=== PATIENT | male | born 1990 | race African-American/Black ===

== ENCOUNTER 2018-11-01 15:10 | Inpatient (IN) | payer OTHER ==
[2018-11-01 18:30] VITALS: BMI 43.7
--- NOTE | 2018-11-01 21:14 | HP ---
"CIWA Score - Admission Criteria [facility] Guidelines: Admission for Medically Managed Detox: Requires at least one of the followin. CIWA greater than 12 2. Seizures within the past 24 hours 3. Delirium tremens within the past 24 hours 4. Hallucinations within the past 24 hours 5. Acute intervention needed for co occurring medical disorder 6. Acute intervention needed for co occurring psychiatric disorder 7. Severe withdrawal that cannot be handled at a lower level of care (continued vomiting, continued diarrhea, abnormal vital signs) requiring intravenous medication and/or fluids 8. Admission ROS [facility] Chief Complaint: SEEKING INPATIENT REHAB FOR CRACK/COCAINE DEPENDENCE Allergies/Adverse Reactions: Allergies Allergy/AdvReac Type Severity Reaction Status Date / Time No Known Allergies Allergy Verified 11/01/18 20:57 History of Present Illness: 28 Y.O. MALE WITH CRACK/COCAINE DEPENDENCE SEEKING [facility]. THIS IS HIS FIRST ADMISSION HERE BUT IS KNOWN TO OTHER SUBSTANCE TXMENT CTR. REFERRED BY A FRIEND. LAST REHAB SERVICE HE REPORTS WAS LATE LAST YEAR. DENIES ANY SIGNIFICANT PERIOD OF CLEAN TIME. DENIES HX/O SI/HI, AVH, SEIZURE D/O. HOMELESS , SSI, DENIES LEGALS. PMHX- HYPOTHYROIDISM, PSYCH- DEPRESSION, BIPOLAR, SCHIZOPHRENIA Search Terms: PEDRO LUIS KELLY, 1990 Search Date: 11/01/2018 09:05:37 PM The Drug Utilization Report below displays all of the controlled substance prescriptions, if any, that your patient has filled in the last twelve months. The information displayed on this report is compiled from pharmacy submissions to the Department, and accurately reflects the information as submitted by the pharmacies. This report was requested by: Hector Guallpa | Reference #: [id number] Exam Limitations: No Limitations - Ebola screening Have you traveled outside of the country in the last 21 days: No Have you had contact with anyone from an Ebola affected area: No Have you been sick,other than usual withdrawal symptoms: No - Review of Systems Constitutional: No Symptoms Reported EENT: reports: No Symptoms Reported Respiratory: reports: No Symptoms reported, Shortness of Breath Cardiac: reports: No Symptoms Reported GI: reports: No Symptoms Reported : reports: No Symptoms Reported Musculoskeletal: reports: No Symptoms Reported Integumentary: reports: Other (BLISTERS AND WART ON MY FEET) Neuro: reports: No Symptoms reported Endocrine: reports: Other (HYPOTHYROIDISM) Hematology: reports: No Symptoms Reported Psychiatric: reports: Orientated x3, Anxious, Depressed Other Systems: Reviewed and Negative Patient History - Patient Medical History Hx Anemia: No Hx Asthma: No Hx Chronic Obstructive Pulmonary Disease (COPD): No Hx Cancer: No Hx Cardiac Disorders: No Hx Congestive Heart Failure: No Hx Hypertension: No Hx Hypercholesterolemia: No Hx Pacemaker: No HX Cerebrovascular Accident: No Hx Seizures: No Hx Dementia: No Hx Diabetes: No Hx Gastrointestinal Disorders: No Hx Liver Disease: No Hx Genitourinary Disorders: No Hx Sexually Transmitted Disorders: No Hx Renal Disease (ESRD): No Hx Thyroid Disease: Yes (HYPOTHYROIDISM) Hx Human Immunodeficiency Virus (HIV): No Hx Hepatitis C: No Hx Depression: Yes Hx Suicide Attempt: No Hx Bipolar Disorder: Yes Hx Schizophrenia: Yes Other Medical History: DENIES - Patient Surgical History Past Surgical History: No - PPD History Previous Implant?: Yes Documented Results: Negative w/o proof Implanted On Prior [facility] Admission?: No PPD to be Administered?: Yes - Smoking Cessation Smoking history: Never smoked Initiated information on smoking cessation: No - Substance & Tx. History Hx Alcohol Use: No Hx Substance Use: Yes Substance Use Type: Cocaine Hx Substance Use Treatment: Yes ([facility] - Substances Abused Cocaine Route: Oral Frequency: Daily Amount used: $700 Age of first use: 27 Date of Last Use: 10/27/18 Family Disease History - Family Disease History Family Disease History: Diabetes: Grandparent, Heart Disease: Grandparent Admission Physical Exam S - Vital Signs Vital Signs: Vital Signs - 24 hr 11/01/18 18:28 Temperature 98.6 F Pulse Rate 74 Respiratory 18 Rate Blood Pressure 127/69 - Physical General Appearance: Yes: Appropriately Dressed, Disheveled, Obese, Sweating, Other (MALODUROUS) HEENTM: Yes: EOMI, Normocephalic, Normal Voice, HANNA, Pharynx Normal, Other ( POOR DENTITION STRABYSMUS) Respiratory: Yes: Chest Non-Tender, Lungs Clear, Normal Breath Sounds, No Respiratory Distress, No Accessory Muscle Use Neck: Yes: No masses,lesions,Nodules, Supple, Trachea in good position Breast: Yes: Breast Exam Deferred Cardiology: Yes: Regular Rhythm, Regular Rate, S1, S2 Abdominal: Yes: Non Tender, Flat, Soft, Decreased BS, Protuberent Genitourinary: Yes: Within Normal Limits (NO C/O) Back: Yes: Normal Inspection Musculoskeletal: Yes: full range of Motion, Gait Steady Extremities: Yes: Normal Capillary Refill, Normal Range of Motion, Non-Tender, Pedal Edema (BLE TRACE EDEMA) Neurological: Yes: Fully Oriented, Alert, Motor Strength 5/5 Integumentary: Yes: Dry, Warm, Pitting Edema (TRACE EMDA OF BLE), Other (FEET WITH DRY SCALY CRACKING OF THE SKIN WITH MULTIPLE CALLUS AREA) Lymphatic: Yes: Within Normal Limits - Diagnostic (1) Cocaine dependence, uncomplicated Current Visit: Yes Status: Acute (2) Hyperthyroidism Current Visit: Yes Status: Chronic (3) Obesities, morbid Current Visit: Yes Status: Chronic (4) Tinea pedis of both feet Current Visit: Yes Status: Acute (5) Strabismus Current Visit: Yes Status: Chronic (6) Paranoid schizophrenia, chronic condition Current Visit: Yes Status: Chronic (7) Abrasion of left elbow Current Visit: Yes Status: Acute Qualifiers: Encounter type: subsequent encounter Qualified Code(s): S50.312D - Abrasion of left elbow, subsequent encounter Cleared for Admission [facility] - Detox or Rehab Detox Regimen/Protocol: Not Applicable Claeared for Rehab Admission: Yes [facility] Breath Alcohol Content Breath Alcohol Content: 0 Urine Drug Screen - Results Drug Screen Negative: No Urine Drug Screen Results: FRANC-Cocaine Inpatient Rehab Admission - Rehab Decision to Admit Inpatient rehab admission?: Yes - Initial Determination Are CD services needed?: Yes Free of communicable disease: Yes Not in need of hospitalization: Yes - Rehab Admission Criteria Previous failed treatment: Yes Poor recovery environment: Yes Comorbidities: Yes Lacks judgement: No Patient is meeting Inpatient Rehab admission criteria:: Yes"
[2018-11-01] MEDS ORDERED: P-EPHED 60MG/TRIPROLIDI 2.5MG TABLET PO PRN (21:45)
[2018-11-01] MEDS ORDERED: ACETAMINOPHEN 325 MG TABLET (FP) PO PRN (21:45)
[2018-11-01] MEDS ORDERED: IBUPROFEN 400 MG TABLET (FP) PO PRN (21:45)
[2018-11-01] MEDS ORDERED: LOPERAMIDE HCL 2 MG CAPSULE PO PRN (21:45)
[2018-11-01] MEDS ORDERED: MAGNESIUM HYDROX 2400MG/30ML ORAL SUSPENSION 30 ML CUP PO PRN (21:45)
[2018-11-01] MEDS ORDERED: guaiFENesin/D-METHORPHAN HB 10 ML UNIT-DOSE CUPS PO PRN (21:45)
[2018-11-01] MEDS ORDERED: hydrOXYzine PAMOATE 50 MG CAPSULE (FP) PO PRN (21:45)
[2018-11-01] MEDS ORDERED: MENTHOL/PHENOL 1 EACH UD MM PRN (21:45)
[2018-11-01] MEDS ORDERED: MAGNESIUM CITRATE 300 ML BOTTLE PO PRN (21:45)
[2018-11-01] MEDS ORDERED: MAG HYDROX/AL HYDROX/SIMETH 30 ML UNIT-DOSE CUP PO PRN (21:45)
[2018-11-01] MEDS ORDERED: MELATONIN 5 MG TABLETS PO PRN (22:00)
[2018-11-02] MEDS: THIAMINE HCL 100 MG TABLET (FP) PO SCH ×2 (00:05→21:17)
[2018-11-02] MEDS: TOLNAFTATE 1% CREAM 15 GM TUBE TP SCH ×3 (00:07→21:18)
[2018-11-02] MEDS ORDERED: TUBERCULIN PPD 5 TU/0.1ML VIAL ID ONE (00:26)
[2018-11-02] MEDS: PRENATAL VITAMINS W/ FOLIC ACID TABLET (FP) PO SCH (09:57)
--- NOTE | 2018-11-02 12:40 | CONSULT ---
[facility] Psychiatric Consult - Data Date of interview: 11/02/18 Admission source: [facility] Identifying data: Direct admission to [address] from the community. First presentation to [facility] for this 28 y/o AA male seeking rehabilitation treatment to consolidate sobriety while addressing co-morbidities (cocaine dependence + schizophrenia). Patient is single without dependents, homeless ( [facility]dc resident), unemployed and supported on SSI benefits. Substance Abuse History: Discussed in this session. Patient confirms an enduring history of crack abuse as detailed in this [facility] report : Smoking history: Never smoked. Initiated information on smoking cessation: No. Substance & Tx. History. Hx Alcohol Use: No. Hx Substance Use: Yes. Substance Use Type: Cocaine. Hx Substance Use Treatment: Yes ([facility] - Substances Abused. Cocaine. Route: Oral. Frequency: Daily. Amount used: $ 700. Age of first use: 27. Date of Last Use: 10/27/18 Medical History: Obesity and hypothyroidism. Psychiatric History: Patient endorses an extensive history of psychiatric illness, remarkable for multiple hospitalizations ([facility], [facility], [facility]). Diagnosed with Schizophrenia. Mr Cortes states that he does not attend OPD programs for aftercare. " I get medications when I get hospitalized or I go to emergency rooms when my medications run out ". The patient informs that he was discharged from [facility] " just a couple of weeks ago ". He is prescribed a regimen of depakote 1000 mg/hs + cogentin 2 mg/bid + haldol 2 mg/bid. Sub-optimal adherence to psychiatric care. Patient denies history of suicide attempts. Physical/Sexual Abuse/Trauma History: Patient denies history of abuse. Additional Comment: Urine Drug Screen Results: FRANC-Cocaine. Noted. Mental Status Exam - Mental Status Exam Alert and Oriented to: Time, Place, Person Cognitive Function: Grossly Intact Patient Appearance: Unkempt, Disheveled (obese ) Mood: Nervous, Anxious, Irritable Affect: Blunted Patient Behavior: Talkative (loquacious), Cooperative (with this headline writer) Speech Pattern: Excessive, Perseverating Voice Loudness: Normal Thought Process: Circumstantial, Disorganized Thought Disorder: Bizarre Hallucinations: Denies Suicidal Ideation: Denies Homicidal Ideation: Denies Insight/Judgement: Poor Sleep: Well Appetite: Good Muscle strength/Tone: Normal Gait/Station: Normal Psychiatric Findings - Problem List ([place] 1, 2,3) (1) Schizophrenia, paranoid type Current Visit: Yes Status: Chronic (2) Cocaine dependence, uncomplicated Current Visit: Yes Status: Chronic (3) Substance induced mood disorder Current Visit: Yes Status: Suspected - Initial Treatment Plan Initial Treatment Plan: Psychoeducation. Sleep hygiene. AA/NA meetings. Motivational sessions throughout hospital course. Support. Group therapy. Medications resumed as follows : haldol 2 mg po bid + cogentin 1 mg po bid + depakote 1000 mg po hs. Side effects/benefits of these three medications are discussed with the patient. Made aware of potential for EPS (extra pyramidal syndrome, abnormal involuntary movements disoders (AIMS), dystonias, tardive dyskinesia, neuroleptic malignant syndrome (NMS) from the use of haloperidol + risk of blood dyscrasias, liver dysfunction, weight gain, alopecia from valproate + blurred vision, urinary hesitancy, dry mouth, constipation that could come from use of cogentin (anticholinergic load). Consent (verbal) expressed to MD. nKutson.
[2018-11-02 14:16] LABS: HEMATOCRIT 45.7 % (35.4-49); HEMOGLOBIN 15.2 GM/dL (11.7-16.9); MCH 29.2 pg (25.7-33.7); MCHC 33.3 g/dl (32.0-35.9); MEAN CELL VOLUME 87.7 fl (80-96); MEAN PLT VOLUME 10.3 fl (7.5-11.1); PLATELET COUNT 201 K/MM3 (134-434); RDW 14.1 % (11.9-15.9); WHITE BLOOD COUNT 6.3 K/mm3 (4.0-10.0)
[2018-11-02 14:25] LABS: ALBUMIN 3.3 g/dl (3.4-5.0); ALK PHOS 82 U/L (45-117); ANION GAP 2 MMOL/L (8-16); BILIRUBIN,TOTAL 0.3 mg/dL (0.2-1); BLOOD UREA NITROGEN 13 mg/dL (7-18); CALCIUM 8.9 mg/dL (8.5-10.1); CHLORIDE 106 mmol/L (98-107); CO2 30 mmol/L (21-32); CREATININE 1.1 mg/dL (0.55-1.3); GLUCOSE,RANDOM 128 mg/dL (74-106); POTASSIUM 4.1 mmol/L (3.5-5.1); SGOT/AST 29 U/L (15-37); SGPT/ALT 49 U/L (13-61); SODIUM 139 mmol/L (136-145); TOT PROT 7.2 g/dl (6.4-8.2)
[2018-11-02 14:30] LABS: URINE APPEARANCE CLEAR; URINE BILIRUBIN NEGATIVE (<2.0 mg/dL); URINE COLOR LTYELLOW; URINE GLUCOSE (UA) NEGATIVE (NEGATIVE); URINE KETONE NEGATIVE (NEGATIVE); URINE LEUK ESTERASE NEGATIVE (NEGATIVE); URINE NITRITE NEGATIVE (NEGATIVE); URINE PROTEIN NEGATIVE (NEGATIVE)
[2018-11-02 14:42] LABS: URINE APPEARANCE CLOUDY; URINE BILIRUBIN NEGATIVE (<2.0 mg/dL); URINE COLOR YELLOW; URINE GLUCOSE (UA) NEGATIVE (NEGATIVE); URINE KETONE NEGATIVE (NEGATIVE); URINE LEUK ESTERASE NEGATIVE (NEGATIVE); URINE NITRITE NEGATIVE (NEGATIVE); URINE PROTEIN NEGATIVE (NEGATIVE)
--- NOTE | 2018-11-02 14:44 | EKG ---
Test Reason : Blood Pressure : / mmHG Vent. Rate : 078 BPM Atrial Rate : 078 BPM P-R Int : 174 ms QRS Dur : 100 ms QT Int : 372 ms P-R-T Axes : 017 075 030 degrees QTc Int : 424 ms NORMAL SINUS RHYTHM NORMAL ECG Confirmed by Miki Moreau MD ([id number]) on 11/02/2018 2:43:47 PM Referred By: Confirmed By:Miki Moreau MD
[2018-11-02] MEDS: DIVALPROEX SODIUM 500 MG TABLET E.C. PO SCH (21:17)
[2018-11-02] MEDS ORDERED: HALOPERIDOL 2 MG TABLET PO SCH (22:00)
[2018-11-02] MEDS ORDERED: DIVALPROEX SODIUM 500 MG TABLET E.C. PO ONE (22:00)
[2018-11-02] MEDS: HALOPERIDOL 1 MG TABLET (FP) PO SCH (22:02)
[2018-11-03] MEDS ORDERED: BENZTROPINE MESYLATE 2 MG TABLET PO SCH (10:00)
[2018-11-03] MEDS: HALOPERIDOL 1 MG TABLET (FP) PO SCH (10:09)
[2018-11-03] MEDS: PRENATAL VITAMINS W/ FOLIC ACID TABLET (FP) PO SCH (10:10)
[2018-11-03] MEDS: TOLNAFTATE 1% CREAM 15 GM TUBE TP SCH ×2 (10:11→21:27)
[2018-11-03] MEDS: BENZTROPINE MESYLATE 1 MG TABLET (FP) PO SCH (10:55)
--- NOTE | 2018-11-03 12:51 | PN ---
Psychiatric Progress Note Vital Signs: Vital Signs Period Temp Pulse Resp BP Sys/Lewis Pulse Ox Last 24 Hr 18-20 Date of Session: 11/03/18 Chief Complaint:: Requested by nursing staff to see patient due to threatening behavior HPI: Patient addressing cocaine dependence comorbid with Paranoid Schizophrenia and substance-induced mood Disorder ROS: Hypothyroidism Current Medications: Active Medications Generic Name Dose Route Start Last Admin Trade Name Freq PRN Reason Stop Dose Admin Acetaminophen 650 mg 11/01/18 21:45 Tylenol - PO Q4H PRN FEVER Al Hydroxide/Mg Hydroxide 30 ml 11/01/18 21:45 Mylanta Oral Suspension - PO Q6H PRN DYSPEPSIA Benztropine Mesylate 2 mg 11/03/18 11:00 11/03/18 10:55 Cogentin - PO 2 mg DAILY REILLY Administration Divalproex Sodium 1,000 mg 11/02/18 22:00 11/02/18 21:17 Depakote - PO 1,000 mg HS REILLY Administration Eucalyptus/Menthol/Phenol/Sorbitol 1 each 11/01/18 21:45 Cepastat Lozenge - MM Q4H PRN SORE THROAT Guaifenesin 10 ml 11/01/18 21:45 Robitussin Dm - PO Q6H PRN COUGH Haloperidol 2 mg 11/02/18 22:00 11/03/18 10:09 Haldol - PO 2 mg BID REILLY Administration Hydroxyzine Pamoate 50 mg 11/01/18 21:45 Vistaril - PO Q4H PRN AGITATION Ibuprofen 400 mg 11/01/18 21:45 Motrin - PO Q6H PRN Pain level 4-6 Loperamide HCl 4 mg 11/01/18 21:45 Imodium - PO Q6H PRN DIARRHEA Magnesium Citrate 300 ml 11/01/18 21:45 Citroma - PO Q48H PRN CONSTIPATION Magnesium Hydroxide 30 ml 11/01/18 21:45 Milk Of Magnesia - PO DAILY PRN CONSTIPATION Melatonin 5 mg 11/01/18 22:00 Melatonin PO HS PRN INSOMNIA Multivit/Folic Acid/Iron 1 tab 11/02/18 10:00 11/03/18 10:10 Vitamins ([facility]) - PO 1 tab DAILY REILLY Administration Pseudoephedrine/Triprolidine 1 combo 11/01/18 21:45 Actifed - PO TID PRN NASAL CONGESTION Thiamine HCl 100 mg 11/01/18 22:00 11/02/18 21:17 Vitamin B1 - PO 100 mg HS REILLY Administration Tolnaftate 1 applic 11/01/18 22:00 11/03/18 10:11 Tinactin 1% Cream - TP 1 applic BID REILLY Administration Current Side Effect: No Lab tests ordered: Yes Lab tests reviewed: Yes Provider note:: Requested by nursing staff to see patient because of threaning behavior. Reportedly threw a tray on the floor and theatening to hurt someone with it. Patient reports that he was angry because he felt disrecpected by the counselor. He told continuity writer that while in group earlier, he raised his hand because he has something to say. He said that the counselor cut him off and did not allow him to finish saying what he had to say. So he said that he became upset and walked out of the group. while outside, he took the food tray and threw it on the floor and threatened to hurt someone with it. Told continuity writer that he was not going to hurt anyone and he was just upset for being disrespected. He apologized for his threatening behavior and promised to follow rules and regulations of the unit. Other staff members including nurse Gale, [employer]ATING OPERATOR, counselor glycerin supervisor and security took turn to reassure patient and make him feel safe and respected Total face to face time:: 25 Mental Status Exam - Mental Status Exam Alert and Oriented to: Time, Place, Person Cognitive Function: Fair Patient Appearance: Well Groomed Mood: Hopeful, Euthymic Affect: Appropriate Patient Behavior: Cooperative Speech Pattern: Clear Voice Loudness: Normal Thought Process: Intact Thought Disorder: Not Present Hallucinations: Denies Suicidal Ideation: Denies Homicidal Ideation: Denies Insight/Judgement: Poor Sleep: Well Appetite: Good Muscle strength/Tone: Normal Gait/Station: Normal Psychiatric Treatment Plan - Problem List (1) Schizophrenia, paranoid type Current Visit: Yes (2) Cocaine dependence Current Visit: Yes (3) Substance induced mood disorder Current Visit: Yes (4) Hyperthyroidism Current Visit: Yes (5) Obesities, morbid Current Visit: Yes Initial treatment plan: 1) Increase Haldol to 5 mg po BID. He was on Haldol 10 mg daily as verified by his medication bottle. 2) Continue other medications as ordered by Dr Mendez. 3) Continue inpatient rehabilitation
[2018-11-03] MEDS ORDERED: HALOPERIDOL 5 MG TABLET (FP) PO PRN (13:03)
[2018-11-03] MEDS ORDERED: HALOPERIDOL 1 MG TABLET (FP) PO ONE ×2 (13:03→14:00)
[2018-11-03] MEDS: DIVALPROEX SODIUM 500 MG TABLET E.C. PO SCH (21:27)
[2018-11-03] MEDS: THIAMINE HCL 100 MG TABLET (FP) PO SCH (21:27)
[2018-11-04] MEDS ORDERED: HALOPERIDOL 5 MG TABLET (FP) PO STA (09:56)
[2018-11-04] MEDS: BENZTROPINE MESYLATE 1 MG TABLET (FP) PO SCH (10:07)
[2018-11-04] MEDS: PRENATAL VITAMINS W/ FOLIC ACID TABLET (FP) PO SCH (10:08)
[2018-11-04] MEDS: TOLNAFTATE 1% CREAM 15 GM TUBE TP SCH ×2 (10:09→21:35)
[2018-11-04] MEDS: HALOPERIDOL 5 MG TABLET (FP) PO SCH ×2 (10:15→21:35)
[2018-11-04] MEDS: THIAMINE HCL 100 MG TABLET (FP) PO SCH (21:35)
[2018-11-04] MEDS: DIVALPROEX SODIUM 500 MG TABLET E.C. PO SCH (21:35)
[2018-11-05 07:08] VITALS: BP 107/70; PULSE 62; TEMP 98.4
[2018-11-05] MEDS: BENZTROPINE MESYLATE 1 MG TABLET (FP) PO SCH (09:06)
[2018-11-05] MEDS: HALOPERIDOL 5 MG TABLET (FP) PO SCH (09:06)
[2018-11-05] MEDS: PRENATAL VITAMINS W/ FOLIC ACID TABLET (FP) PO SCH (09:06)
[2018-11-05] MEDS: TOLNAFTATE 1% CREAM 15 GM TUBE TP SCH (09:07)
--- NOTE | 2018-11-05 09:25 | PN ---
[facility] Progress Note Note: REHAB DISCHARGE NOTE: PT IS A 28 Y/O MALE ADMITTED HERE TO REHAB ON 11/01/18 FOR CRACK/COCAINE DEPENDENCE NOW WANTS TO SIGN OUT AMA. PT HAS BEEN VERY RESTLESS AND THREATENING TO LEAVE FOR THE PAST 2 DAYS AND STAFF HAS ENCOURAGED PT TO GIVE A CHANCE TO TREATMENT. PT CAME BANGING AT THE COUNSELOR'S DOOR DURING MORNING ROUND MEETING SCREAMING "I WANT TO LEAVE NOW. YOU ARE HOLDING ME AGAINST MY WILL". PT REFUSED TO WAIT TO BE SPOKEN TO OR TO CALM HIM DOWN AND DECLINED COUNSELOR;S OFFER FOR AFTERCARE COUNSELLING INFORMATION. PT IS ALERT O X 3, NO EXPRESSION OF S/H/IDEATIONS. IN NAD. PT WAS SEEN BY COUNSELOR FAUSTO BEFORE LEAVING. Vital Signs - 24 hr 11/05/18 11/05/18 03:30 07:07 Temperature 98.4 F Pulse Rate 62 Respiratory 18 20 Rate Blood Pressure 107/70 Laboratory Tests 11/02/18 11/02/18 11/02/18 10:20 10:20 10:20 WBC 6.3 RBC 5.20 Hgb 15.2 Hct 45.7 MCV 87.7 MCH 29.2 MCHC 33.3 RDW 14.1 Plt Count 201 MPV 10.3 Sodium 139 Potassium 4.1 Chloride 106 Carbon Dioxide 30 Anion Gap 2 L BUN 13 Creatinine 1.1 Creat Clearance w eGFR > 60 Random Glucose 128 H Calcium 8.9 Total Bilirubin 0.3 AST 29 ALT 49 Alkaline Phosphatase 82 Total Protein 7.2 Albumin 3.3 L Urine Color Urine Appearance Urine pH Ur Specific [place] Urine Protein Urine Glucose (UA) Urine Ketones Urine Blood Urine Nitrite Urine Bilirubin Urine Urobilinogen Ur Leukocyte Esterase Valproic Acid RPR Titer Nonreactive 11/02/18 11/02/18 11/03/18 10:20 13:10 08:40 WBC RBC Hgb Hct MCV MCH MCHC RDW Plt Count MPV Sodium Potassium Chloride Carbon Dioxide Anion Gap BUN Creatinine Creat Clearance w eGFR Random Glucose Calcium Total Bilirubin AST ALT Alkaline Phosphatase Total Protein Albumin Urine Color Ltyellow Yellow Urine Appearance Clear Cloudy Urine pH 7.0 7.0 Ur Specific [place] 1.010 1.017 Urine Protein Negative Negative Urine Glucose (UA) Negative Negative Urine Ketones Negative Negative Urine Blood Negative Negative Urine Nitrite Negative Negative Urine Bilirubin Negative Negative Urine Urobilinogen 2.0 2.0 Ur Leukocyte Esterase Negative Negative Valproic Acid 7.1 L RPR Titer PLAN:PT SIGNED OUT AMA.
--- NOTE | 2018-11-16 22:20 | EKG ---
Test Reason : Blood Pressure : / mmHG Vent. Rate : 071 BPM Atrial Rate : 071 BPM P-R Int : 178 ms QRS Dur : 092 ms QT Int : 384 ms P-R-T Axes : 032 065 027 degrees QTc Int : 417 ms NORMAL SINUS RHYTHM NORMAL ECG WHEN COMPARED WITH ECG OF 01-NOV-2018 23:16, NO SIGNIFICANT CHANGE WAS FOUND Confirmed by SHELIA KELLER MD ([id number]) on 11/16/2018 10:20:12 PM Referred By: BRAYDON Confirmed By:SHELIA KELLER MD
== END 2018-11-05 09:10 | disposition left against medical advice (07) | DRG 770 ==
LOC: YASAS 15:10 → Y5N 22:22
PROVIDERS: ADMIT Neuromusculoskeletal Medicine & OMM; ATTEND Neuromusculoskeletal Medicine & OMM
PROC: HZ42ZZZ Group Counseling for Substance Abuse Treatment, Cognitive-Behavioral (ICD-10-PCS; principal; 2018-11-01)
DX: F14.20 Cocaine dependence, uncomplicated (principal); F20.0 Paranoid schizophrenia; F19.24 Other psychoactive substance dependence with psychoactive substance-induced mood disorder; E03.9 Hypothyroidism, unspecified; E66.01 Morbid (severe) obesity due to excess calories; Z68.41 Body mass index [BMI] 40.0-44.9, adult
CPT/HCPCS: 36415; 80053; 80164; 81003; 85027; 86593; 93005; 93010